=== PATIENT | male | born 1960 | race Caucasian/White ===

== ENCOUNTER 2018-09-01 10:48 | Emergency (ER) | payer BC ==
[2018-09-01] MEDS ORDERED: Lidocaine 1% 30 ML SDV INJECT ONE (11:19)
[2018-09-01] MEDS ORDERED: Bacitracin Oint 1 GM U/D Packet TOP ONE (11:20)
[2018-09-01] MEDS ORDERED: Diphtheria,Pertussis(Acell),Tetanus Vaccine 0.5 ML SDV IM ONE (11:20)
--- NOTE | 2018-09-01 11:51 | EDM.PDOC ---
ED HPI GENERAL MEDICAL PROBLEM - General Chief Complaint: Laceration Stated Complaint: FISHING HOOKS IN HAND Time Seen by Provider: 09/01/18 11:15 Source of Information: Reports: Patient, RN, RN Notes Reviewed History Limitations: Reports: No Limitations - History of Present Illness INITIAL COMMENTS - FREE TEXT/NARRATIVE: Pt to ER with c/o fish hook in the right index finger. Patient states this happed about 1 hour prior to arrival. Patient states he is not up to date on his tetanus vaccination. Onset: Today, Sudden - Related Data Allergies Allergy/AdvReac Type Severity Reaction Status Date / Time No Known Allergies Allergy Verified 09/01/18 10:58 Home Meds: Home Meds Loratadine [Claritin] 10 mg PO DAILY 09/01/18 [History] Past Medical History - Past Health History Medical/Surgical History: Denies Medical/Surgical History Social & Family History - Family History Family Medical History: Noncontributory - Tobacco Use Smoking Status *Q: Never Smoker Second Hand Smoke Exposure: No - Caffeine Use Caffeine Use: Reports: Coffee - Recreational Drug Use Recreational Drug Use: No ED ROS GENERAL - Review of Systems Review Of Systems: ROS reveals no pertinent complaints other than HPI. ED EXAM, SKIN/RASH Exam: See Below Exam Limited By: No Limitations General Appearance: Alert, WD/WN, Anxious, Mild Distress Eye Exam: Bilateral Eye: EOMI, Normal Inspection Ears: Normal External Exam, Hearing Grossly Normal Nose: Normal Inspection Throat/Mouth: Normal Inspection, Normal Voice, No Airway Compromise Head: Atraumatic, Normocephalic Neck: Normal Inspection, Supple, Non-Tender, Full Range of Motion Respiratory/Chest: No Respiratory Distress, Lungs Clear, Normal Breath Sounds, No Accessory Muscle Use, Chest Non-Tender Cardiovascular: Normal Peripheral Pulses, Regular Rate, Rhythm, No Edema, No Gallop, No JVD, No Murmur, No Rub Peripheral Pulses: 2+: Radial (L), Radial (R) GI/Abdominal: Normal Bowel Sounds, Soft, Non-Tender (Male) Exam: Deferred Rectal (Males) Exam: Deferred Back Exam: Normal Inspection, Full Range of Motion, NT Extremities: Normal Inspection, Normal Range of Motion, Non-Tender, No Pedal Edema, Normal Capillary Refill Neurological: Alert, Oriented, CN II-XII Intact, Normal Cognition, Normal Gait, Normal Reflexes, No Motor/Sensory Deficits Psychiatric: Normal Affect, Normal Mood, Anxious Skin: Warm, Dry, Normal Color, No Rash, Wound/Incision (fish hook (two hooks on 1 lure) both lodged in the right index finger ) Location, Skin: Upper Extremity, Right Lymphatic: No Adenopathy ED SKIN PROCEDURES - Foreign Body Removal Indication:: 2 hooks on 1 lure embedded in the right index finger Consent Obtained:: Patient Performing Doctor:: Opal Salazar Anesthesia Type: Local Anesthesia Other:: 3cc Lidocaine 1% Complications:: No Course - Vital Signs Last Recorded V/S: Last Vital Signs Temp 96.4 F 09/01/18 10:59 Pulse 63 09/01/18 10:59 Resp 16 09/01/18 10:59 BP 145/64 H 09/01/18 10:59 Pulse Ox 100 09/01/18 10:59 - Orders/Labs/Meds Meds: Medications Discontinued Medications Generic Name Dose Route Start Last Admin Trade Name Freq PRN Reason Stop Dose Admin Bacitracin 1 dose 09/01/18 11:20 09/01/18 11:40 Bacitracin Oint 1 Gm TOP 09/01/18 11:21 1 dose ONETIME ONE Administration Diphtheria/Tetanus/Acell Pertussis 0.5 ml 09/01/18 11:20 09/01/18 11:40 Adacel IM 09/01/18 11:21 0.5 ml .ONCE ONE Administration Lidocaine HCl 30 ml 09/01/18 11:19 09/01/18 11:40 Xylocaine-Mpf 1% INJECT 09/01/18 11:20 30 ml ONETIME ONE Administration Departure - Departure Time of Disposition: 11:51 Disposition: Home, Self-Care 01 Condition: Fair Clinical Impression: Puncture wound - injury Fish hook injury of finger of right hand Qualifiers: Encounter type: initial encounter Qualified Code(s): S69.91XA - Unspecified injury of right wrist, hand and finger(s), initial encounter - Discharge Information *PRESCRIPTION DRUG MONITORING PROGRAM REVIEWED*: No *COPY OF PRESCRIPTION DRUG MONITORING REPORT IN PATIENT URBAN: No Instructions: Puncture Wound, [id number] Referrals: PCP,Not In Area [Primary Care Provider] - Forms: ED Department Discharge Additional Instructions: Keep area clean and dry Monitor for signs of infection, redness, drainage, warmth
== END 2018-09-01 11:55 | disposition home or self-care (01) ==
LOC: DL.ED 10:48
DX: S60.450A Superficial foreign body of right index finger, initial encounter (principal); W45.8XXA Other foreign body or object entering through skin, initial encounter; Z23 Encounter for immunization
CPT/HCPCS: 90471; 90715; 99283; J2001